=== PATIENT | female | born 1960 | race Caucasian/White ===

== ENCOUNTER → 2017-11-11 | Outpatient (CLI) | payer BC ==
[~2017-11-11] MED LIST: ASPIRIN325 PO; FARXIGA10 MG PO; GLUCOPHAGE1000 MG PO; LISINOPRIL-HCT1 EACH PO; NITROGLYCERIN0.4 MG SL; NITROQUICK0.4 MG SL; TOPROL XL50 MG PO; TRULICITY1.5 MG/0.5 SQ; VICTOZA0.6 MG/0.1 SQ; ZANTAC 150MG T150 MG PO; ZOCOR 20 MG TAB20 M1 PO
[2017-11-11 10:17] LABS: ABSOLUTE BASOPHILS 0.1 thou/uL (0.0-0.2); ABSOLUTE EOSINOPHILS 0.1 thou/uL (0.0-0.7); ABSOLUTE LYMPHOCYTES 2.5 thou/uL (0.8-5.3); ABSOLUTE MONOCYTES 0.6 thou/uL (0.0-1.2); ABSOLUTE NEUTROPHILS 5.7 thou/uL (1.6-8.1); BASOPHILS 0.9 %; EOSINOPHILS 1.1 %; HEMATOCRIT 40.9 % (37.0-47.0); HEMOGLOBIN 13.6 gm/dL (12.0-15.0); MCH 25.7 pg (26.0-34.0); MCHC 33.2 g/dL (28.0-37.0); MCV 77.4 fL (80.0-100.0); MONOCYTES 6.8 %; MPV 7.8 fl. (7.2-11.1); NUCLEATED RBCS 0 /100WBC; PLATELET COUNT* 243 thou/uL (150-400); POLYS 63.2 %; RBC 5.28 mil/uL (4.20-5.00); RDW-CV 14.1 % (10.5-14.5)
[2017-11-11 10:22] LABS: CALCIUM 8.5 mg/dL (8.5-10.1); CREATININE 0.7 mg/dL (0.6-1.3); POTASSIUM 3.9 mmol/L (3.5-5.1)
[2017-11-11 10:27] LABS: ALBUMIN 3.6 g/dL (3.4-5.0); TOTAL BILIRUBIN 0.3 mg/dL (<0.1-1.0); TOTAL PROTEIN 7.8 g/dL (6.4-8.2)
== END ==
LOC: M.CT 09:53
PROVIDERS: Family Medicine
DX: K76.0 Fatty (change of) liver, not elsewhere classified (principal); N20.0 Calculus of kidney

== ENCOUNTER → 2017-11-17 | Outpatient (CLI) | payer BC | LOC: M.ULTRA 08:43 | DX: N94.9 Unspecified condition associated with female genital organs and menstrual cycle (principal) ==